=== PATIENT | female | born 1985 | race African-American/Black ===

== ENCOUNTER 2017-10-22 20:57 | Observation (INO) ==
[2017-10-22] MEDS ORDERED: KETOROLAC 30 MG/1 ML VIAL IV STA (21:49)
[2017-10-22] MEDS ORDERED: ASPIRIN 325 MG TABLET PO STA (21:49)
[2017-10-22 22:41] LABS: Basophils % 0.2 % (0.0-0.8); Eosinophils % 0.5 % (0.00-10.9); Hematocrit 37.5 VOL% (35.7-47.0); Hemoglobin 11.5 GM/DL (12.0-16.0); Immature Granulocytes % 0.3 %; Immature Granulocytes Absolute 0.02 #; Lymphocytes # 2.3 10*3/uL (1.4-4.0); Lymphocytes % 38.8 % (21.3-54.2); Mean Corpuscular HGB Conc 30.7 GM/DL (32-36); Mean Corpuscular Hemoglobin 23 PG (27-34); Mean Platelet Volume 9.2 FL (9.6-12.0); Monocytes # 0.4 10*3/uL (0.11-0.8); Monocytes % 7.4 % (1.7-12.7); Neutrophils # 3.1 10*3/uL (1.4-7.4); Neutrophils % 52.8 % (38.7-73.9); Platelet Count 352 T/CUMM (130-400); Red Cell Distribution Width 13.7 % (9.3-17.3); White Blood Count 5.8 T/CUMM (4-12)
[2017-10-22 23:04] LABS: Alanine Aminotransferase 17 U/L (13-56); Alkaline Phosphatase 109 U/L (45-117); Aspartate Amino Transferase 14 U/L (0-37); Bilirubin,Total < 0.39 MG/DL (0.2-1.0); Blood Urea Nitrogen 8 MG/DL (7-18); Calcium 9.9 MG/DL (8.5-10.1); Glucose 92 MG/DL (74-106); Osmolality,Calculated 280.1 MOS/KG (273-304); Potassium 3.7 MMOL/L (3.5-5.1); Sodium 142 MMOL/L (136-145); Total Protein 8.4 G/DL (6.4-8.3)
[2017-10-22] MEDS ORDERED: NITROGLYCERIN SL 0.4 MG TABLET SL PRN (23:08)
[2017-10-22] MEDS ORDERED: ONDANSETRON 4 MG/2 ML VIAL IV PRN (23:22)
[2017-10-22] MEDS ORDERED: KETOROLAC 15 MG/1 ML VIAL IV PRN (23:27)
[2017-10-22] MEDS ORDERED: GABAPENTIN 300 MG CAPSULE PO PRN (23:27)
[2017-10-22 23:30] LABS: INR 1.3; Partial Thromboplastin Time 34.1 SECS (0-40)
[2017-10-23 03:21] LABS: Basophils % 0.5 % (0.0-0.8); Eosinophils % 0.9 % (0.00-10.9); Hematocrit 34.5 VOL% (35.7-47.0); Hemoglobin 10.8 GM/DL (12.0-16.0); Immature Granulocytes % 0.2 %; Immature Granulocytes Absolute 0.01 #; Lymphocytes # 1.9 10*3/uL (1.4-4.0); Lymphocytes % 43.2 % (21.3-54.2); Mean Corpuscular HGB Conc 31.3 GM/DL (32-36); Mean Corpuscular Hemoglobin 23 PG (27-34); Mean Corpuscular Volume 72.6 FL (87-102); Mean Platelet Volume 9.3 FL (9.6-12.0); Monocytes # 0.3 10*3/uL (0.11-0.8); Monocytes % 7.8 % (1.7-12.7); Neutrophils # 2.1 10*3/uL (1.4-7.4); Neutrophils % 47.4 % (38.7-73.9); Platelet Count 344 T/CUMM (130-400); Red Blood Count 4.75 MC/CUMM (3.8-5.5); Red Cell Distribution Width 13.6 % (9.3-17.3); White Blood Count 4.4 T/CUMM (4-12)
[2017-10-23 03:22] LABS: Basophils % 0.2 % (0.0-0.8); Eosinophils % 0.7 % (0.00-10.9); Hematocrit 34.2 VOL% (35.7-47.0); Hemoglobin 10.8 GM/DL (12.0-16.0); Immature Granulocytes % 0.2 %; Immature Granulocytes Absolute 0.01 #; Lymphocytes # 1.9 10*3/uL (1.4-4.0); Lymphocytes % 44.9 % (21.3-54.2); Mean Corpuscular HGB Conc 31.6 GM/DL (32-36); Mean Corpuscular Hemoglobin 23 PG (27-34); Mean Corpuscular Volume 72.5 FL (87-102); Mean Platelet Volume 9.3 FL (9.6-12.0); Monocytes # 0.3 10*3/uL (0.11-0.8); Monocytes % 7.7 % (1.7-12.7); Neutrophils % 46.3 % (38.7-73.9); Platelet Count 347 T/CUMM (130-400); Red Blood Count 4.72 MC/CUMM (3.8-5.5); Red Cell Distribution Width 13.5 % (9.3-17.3); White Blood Count 4.3 T/CUMM (4-12)
[2017-10-23 03:53] LABS: Calcium 9.5 MG/DL (8.5-10.1); Osmolality,Calculated 279.3 MOS/KG (273-304); Potassium 3.5 MMOL/L (3.5-5.1); Risk Ratio 1.7; VLDL CHOLESTEROL 5.8 MG/DL
[2017-10-23 03:54] LABS: % Iron Saturation 20.7 % (18-50); Ferritin 93.3 ng/ml (8-252)
[2017-10-23 04:03] LABS: Folate 19.1 NG/ML (5.4-24.0); Vitamin B12 498 PG/ML (211-911)
[2017-10-23 07:53] LABS: Sedimentation Rate-Westergren 25 MM/HR (0-20)
[2017-10-23] MEDS ORDERED: ASPIRIN EC 81 MG TABLET PO SCH (09:00)
[2017-10-23] MEDS ORDERED: ENOXAPARIN 40 MG/0.4 ML SYRINGE SUBCUT SCH (09:00)
[2017-10-23 09:11] LABS: Hemoglobin A1 (Alkaline) 97.4 % (96.5-98.5); Hemoglobin A2 (Alkaline) 2.6 % (1.5-3.5)
[2017-10-23 10:18] LABS: Barbiturates Screen,Urine Negative (Negative); Benzodiazepines Screen,Urine Negative (Negative); Cannabinoid Screen,Urine Negative (Negative); Opiate Screen,Urine Positive (Negative); Phencyclidine Screen,Urine Negative (Negative)
[2017-10-23] MEDS ORDERED: PANTOPRAZOLE 40 MG TABLET PO SCH (13:31)
[2017-10-23 16:49] VITALS: BP 116/71
[2017-10-26] MEDS ORDERED: ERGOCALCIFEROL 50,000 UNIT CAPSULE PO SCH (09:00)
== END 2017-10-23 17:58 | disposition home or self-care (01) ==
LOC: N.EDINP 20:57 → N.ED 20:57 → N.TELES 10-23 01:00
PROVIDERS: ADMIT Internal Medicine; ATTEND Internal Medicine